=== PATIENT | female | born 1950 | race Caucasian/White ===

== ENCOUNTER 2020-11-24 03:28 | Emergency (ER) | payer MEDICARE, MEDICAID ==
[~2020-11-24] VITALS: Ht 165.1 cm; Wt 63.0 kg
[2020-11-24 04:08] VITALS: BP 183/100
[2020-11-24] MEDS ORDERED: METOPROLOL TARTRATE 50MG TABLET PO ONE (04:15)
== END 2020-11-24 04:11 | disposition home or self-care (01) ==
LOC: ER 03:28
DX: H11.31 Conjunctival hemorrhage, right eye (principal); I10 Essential (primary) hypertension; E11.9 Type 2 diabetes mellitus without complications; Z91.018 Allergy to other foods
CPT/HCPCS: 99281